=== PATIENT | male | born 1995 | race Caucasian/White ===

== ENCOUNTER 2016-12-13 13:20 | Emergency (ER) | payer OTHER ==
[2016-12-14] MEDS ORDERED: PERCOCET 10/3251 TAB PO (12:01)
[2016-12-14] MEDS ORDERED: AUG875 PO (12:02)
== END 2016-12-13 13:55 | disposition home or self-care (01) ==
LOC: ER 13:20
DX: K04.7 Periapical abscess without sinus (principal); F17.200 Nicotine dependence, unspecified, uncomplicated; R22.0 Localized swelling, mass and lump, head
CPT/HCPCS: 99282; A9270-GY

== ENCOUNTER 2016-12-13 23:45 | Observation (INO) | payer OTHER ==
--- NOTE | ~2016-12-13 | HP ---
History And Physical [id number] [facility] [place]. [address] NAME: MARIS RASMUSSEN JR : 89 STATUS : DIS Quin PAT#: [id number] AGE: 21 ADM/REG DATE : 12/14/16 MR#: [id number] REPORT SERV DATE: 12/14/16 DICTATED BY: STANISLAW VALERA DATE: 12/14/16 REPORT STATUS : Draft TRANSCRIBED BY: MODL DATE: 12/14/16 DATE OF ADMISSION: 12/14/2016 ADMITTING DIAGNOSIS: Right facial cellulitis, caries tooth #3. HISTORY OF PRESENT ILLNESS: This 21-year-old white male had apparently been seen in the emergency room previously and returned last night with increased swelling in the right buccal area. He was admitted for incision and drainage and extraction of the offending tooth. PHYSICAL EXAMINATION: HEAD: Normocephalic with prominent swelling in the right maxillary cheek area. EYES: Pupils equal, round, and react to light. Extraocular muscle movements are full. NOSE: Septum midline. No extranasal pathology. EARS: External auditory canals patent. ORAL CAVITY: Very poor oral hygiene. Grossly carious tooth #3, edematous gingiva and swelling in the right posterior maxillary vestibule. NECK: Good range of motion. Carotids +2. CHEST: Clear to auscultation. HEART: Regular rate and rhythm without murmur or gallop. ABDOMEN: Soft and nontender. EXTREMITIES: Good range of motion and strength. RECTAL: Deferred. GENITAL: Deferred. LABORATORY DATA: Labs with increased wbc's. PLAN: Hospitalization for intravenous antibiotics, extraction of the offending tooth, and incision and drainage of the facial swelling. /SARA Stanislaw Valera D.D.S. / [id number] CC: Stanislaw Valera D.D.S.
--- NOTE | ~2016-12-13 | OP ---
Record Of Operation [facility] [address] [place]. [address] NAME: MARIS RASMUSSEN JR : 89 STATUS : DIS Qiun PAT#: [id number] AGE: 21 ADM/REG DATE : 12/14/16 MR#: [id number] REPORT SERV DATE: 12/14/16 DICTATED BY: STANISLAW VALERA DATE: 12/14/16 REPORT STATUS : Draft TRANSCRIBED BY: MODL DATE: 12/14/16 DATE OF PROCEDURE: 12/14/2016 PREOPERATIVE DIAGNOSIS: Right facial cellulitis, secondary abscess tooth #3. POSTOPERATIVE DIAGNOSIS: Right facial cellulitis, secondary abscess tooth #3. PROCEDURE: Incision and drainage, extraction of tooth #3. ANESTHESIA: Orotracheal general. ESTIMATED BLOOD LOSS: 10 mL. COMPLICATIONS: None. DESCRIPTION OF PROCEDURE: The patient was taken to the operating room on 12/14/2016. 0.5% Marcaine with epinephrine was administered and the surgical site. #18-gauge needle was used to aspirate the area of swelling and a sample of mucopurulent bloody aspirate was obtained and sent for C and S, and culture for aerobes and anaerobes. #15 blade was then used to make an incision and drainage site in the depth of the vestibule in the area of the swelling. Blunt dissection was carried out with a mosquito hemostat. Superior to the root apices, a 1/4-inch Emma drain was placed into this wound, and sutured with two 3-0 gut sutures. The upper first molar tooth was then removed using upper universal forceps. Pressure packs were placed in this area. Nasopharynx and hypopharynx were suctioned free of debris, and the patient was awakened, and taken recovery room having tolerated procedure satisfactorily. /SARA Stanislaw Valera D.D.S. / [id number] CC: Stanislaw Valera D.D.S.
[2016-12-14 00:55] LABS: BASOPHILS 0.2 %; BASOPHILS ABSOLUTE 0.04 10/3/uL (0.0-0.16); EOSINOPHILS 1.1 %; EOSINOPHILS ABSOLUTE 0.19 10/3/uL (0.0-0.53); ER CBC TAT 0 Hrs 03 Mins; HEMATOCRIT 44.1 % (40.0-51.0); HEMOGLOBIN 15.7 g/dL (13.6-17.8); IMMATURE GRANULOCYTES 0.4 %; IMMATURE GRANULOCYTES ABSOLUTE 0.07 10/3/uL (0.0-0.11); LYMPHOCYTES ABSOLUTE 2.09 10/3/uL (0.67-4.30); MEAN CORPUS HGB CONC 35.6 g/dL (32.0-36.0); MEAN CORPUSCULAR HEMOGLOB 30.3 pg (26.0-34.0); MEAN CORPUSCULAR VOLUME 85.1 fL (80-100); MEAN PLATELET VOLUME 12.1 fL (9.2-13.0); MONOCYTES 5.6 %; MONOCYTES ABSOLUTE 0.97 10/3/uL (0.21-1.20); NEUTROPHILS 80.7 %; NEUTROPHILS ABSOLUTE 14.03 10/3/uL (2.02-8.40); PLATELET COUNT 222 10/3/uL (150-400); RBC DISTRIBUTION WIDTH 13.4 % (12.0-16.0); RED CELL COUNT 5.18 10/6/uL (4.7-6.1); WHITE BLOOD CELLS 17.4 10/3/uL (4.5-10.5)
[2016-12-14 00:58] LABS: MANUAL DIFF NO %
[2016-12-14 01:11] LABS: A/G RATIO 1.5 (0.7-1.9); ALBUMIN 3.8 G/DL (3.5-5.0); ALKALINE PHOSPHATASE 73 U/L (45-117); BUN (BLOOD UREA NITROGEN) 16 MG/DL (6-23); CALCIUM, SERUM 8.3 MG/DL (8.5-10.4); CHLORIDE, SERUM 106 MMOL/L (96-112); CO2 (CARBON DIOXIDE) 27 MMOL/L (24-34); CREATININE 0.79 MG/DL (0.70-1.30); GFR AFRICAN AMERICAN 150 ML/MIN (>=60); GFR NON AFRICAN AMERICAN 129 ML/MIN (>=60); GLOBULIN 2.6 G/DL (2.5-4.1); GLUCOSE, SERUM 117 MG/DL (60-99); POTASSIUM, SERUM 3.5 MMOL/L (3.5-5.3); SGOT(AST) 14 U/L (5-40); SGPT(ALT) 30 U/L (5-65); SODIUM, SERUM 141 MMOL/L (135-148); TOTAL BILIRUBIN 0.3 MG/DL (0-1.2); TOTAL PROTEIN 6.4 G/DL (6.0-8.5)
[2016-12-14] MEDS ORDERED: PERCOCET 10/3251 TAB PO (12:01)
[2016-12-14] MEDS ORDERED: AUG875 PO (12:02)
== END 2016-12-14 13:07 | disposition home or self-care (01) ==
LOC: ER 23:45 → 5SO 12-14 03:30
PROVIDERS: Nurse Practitioner; Oral & Maxillofacial Surgery
PROC: 0CDWXZ0 Extraction of Upper Tooth, Single, External Approach (ICD-10-PCS; 2016-12-14)
PROC: 0J910ZZ Drainage of Face Subcutaneous Tissue and Fascia, Open Approach (ICD-10-PCS; principal; 2016-12-14 08:45)
DX: K04.7 Periapical abscess without sinus (principal); L03.211 Cellulitis of face
CPT/HCPCS: 70487; 80053; 85025; 87040; 87070; 87075; 87205; 96365; 96375; 96376; 99284; A9270-GY; G0378; J0330; J2250; J2405; J3010; Q9967